=== PATIENT | female | born 1990 | race Hispanic/Latino ===

== ENCOUNTER → 2017-09-14 07:43 | Outpatient (CLI) | payer MEDICAID, SELFPAY ==
--- NOTE | 2017-09-14 07:47 | DI.US.S_ITS ---
PROCEDURE: US OB >= 14 WEEKS FETUS INDICATIONS: ANATOMY OUTSIDE/PRIOR DATING DATA: Last menstrual period (LMP): Unknown. LMP-based estimated date of delivery (JAKY): N./A.. First dating scan (date and location): 09/14/2017. Estimated date of delivery (JAKY) from first dating scan: 11/26/2017. TECHNIQUE: Real-time scanning was performed of the fetus, with image documentation and biometric measurements. Endovaginal scanning: Not required COMPARISON: None. FINDINGS: General: A single living intrauterine gestation is present. Presentation: Transverse, head to the maternal left. Placenta: Placental position is anterior, without previa. Amniotic fluid index: 17.2 cm, normal range is 5-24 cm. heart rate: 125 beats per minute. Maternal cervical canal: 3.9 cm long. Normal lower limit is 2.5 cm. biometrics: Biparietal diameter: 29 weeks 2 days Head circumference: 29 weeks 2 days Abdominal circumference: 31 weeks 5 days Femur length: 27 weeks 6 days Estimated gestational age from initial scan: not applicable. Composite gestational age from present scan: 29 weeks 4 days Estimated weight and percentile: 1517 g Measurement variability for biometric dating: +/- 7 days from 14 weeks to 15 weeks 6 days gestation, +/- 10 days from 16 weeks to 21 weeks 6 days gestation, +/- 2 weeks from 22 weeks to 27 weeks 6 days gestation, +/- 3 weeks for 28 weeks gestation or later. weight reference: 4500 g or EFW >90/95% is considered macrosomia or large for gestational age. EFW <10% is small for gestational age. EFW 5% or less is considered intra-uterine growth restriction. Anatomic survey: Neuro: Cranial anatomy not well seen secondary to age Nuchal skin fold: Normal at less than 6 mm between 14-21 weeks gestational age. Face: Nose and lips, facial profile are now well seen secondary to position. Spine: No evidence for spina bifida. Heart: 4-chambered heart is present, with ventricular outflow tracts not well seen. Diaphragm: Diaphragm is intact. Stomach: Left-sided stomach is present. Kidneys: No hydronephrosis. Normal is less than 5 mm in 2nd trimester, less than 7 mm in 3rd trimester. Cord: 3-vessel cord has orthotopic insertion. Bladder: Normal in size. Extremities: All 4 extremities identified. IMPRESSION: Single, live intrauterine gestation in transverse lie showing composite gestational age of 29 weeks 4 days, JAKY 11/26/2017. Visualized anatomy appears normal however there are some areas not well-seen secondary to age or/and position Dictated by: Charbel Bullock M.D. on 09/14/2017 at 8:51 Approved by: Charbel Bullock M.D. on 09/14/2017 at 8:56
== END ==
DX: Z34.93 Encounter for supervision of normal pregnancy, unspecified, third trimester (principal); Z3A.29 29 weeks gestation of pregnancy
CPT/HCPCS: 76811

== ENCOUNTER → 2017-09-25 15:05 | Outpatient (CLI) | payer MEDICAID, SELFPAY ==
[2017-09-25 16:11] LABS: Appearance Urine UA CLEAR; Bilirubin Urine UA NEGATIVE (NEGATIVE); Color Urine UA YELLOW; Glucose Urine UA NEGATIVE (Normal); Ketones Urine UA NEGATIVE (NEGATIVE); Leukocyte Esterase Urine UA NEGATIVE (NEGATIVE); Nitrite Urine UA Negative (Negative); Occult Blood Urine UA NEGATIVE (Negative); Protein Urine UA NEGATIVE (Negative); Specific Gravity Urine UA 1.015 (1.000-1.035); Urobilinogen Urine UA 0.2 E.U./dL (0.2)
[2017-09-25 16:18] LABS: Add Manual Diff / Slide Review NO; Basophils Percent Auto 0.1 % (0-2); Eosinophils Percent Auto 1.2 % (2-4); Hematocrit 34.1 % (36-46); Hemoglobin 11.6 g/dL (12.0-16.0); Lymphocytes Percent Auto 24.3 % (25-40); Mean Corpuscular HGB Conc 34.2 % (30-36); Mean Corpuscular Hemoglobin 30.1 PG (26-34); Mean Corpuscular Volume 88.1 fL (80-100); Monocytes Percent Auto 6.1 % (3-14); Neutrophils Absolute Auto 6800 /uL (3000-5900); Neutrophils Percent Auto 68.3 % (50-75); Platelet Count 259 X10^3/uL (150-400); Red Blood Cell Count 3.87 X10^6/uL (4.0-5.2); Red Cell Distribution Width 12.6 % (11.6-14.8)
[2017-09-25 16:40] LABS: Hemoglobin A1C% w Est Avg Glu 5.3 % (4.0-6.0)
[2017-09-25 16:47] LABS: Glucose 80 mg/dL (70-100)
[2017-09-25 17:32] LABS: Hepatitis B Surface Antigen NEGATIVE s/c (NEGATIVE)
[2017-09-25 17:47] LABS: HIV 1 and 2 Antibody NEGATIVE (NEGATIVE); Hep C Virus Ab w/Reflex Quant NEGATIVE s/c (NEGATIVE)
[2017-09-27 15:43] LABS: HSV 2 IGG AB < 0.90 index (< 0.90); HSV1IGG 5.51 index (< 0.90)
[2017-09-27 16:33] LABS: Varicella IgG Antibody < 135.00 Index (< 135.00)
[2017-10-01 14:43] LABS: Rapid Plasma Reagin NON-REACTIVE
== END ==
DX: Z34.83 Encounter for supervision of other normal pregnancy, third trimester (principal); Z3A.30 30 weeks gestation of pregnancy
CPT/HCPCS: 36415; 80055; 81003; 82947; 83036; 86695; 86696; 86703; 86787; 86803; 86850; 86900; 86901; 87086

== ENCOUNTER 2017-09-25 16:00 | Outpatient (CLI) | payer MEDICAID, SELFPAY | END 2017-09-25 16:40 | disposition home or self-care (01) | LOC: LABOR 17:08 → OB 09-27 14:39 | DX: O09.33 Supervision of pregnancy with insufficient antenatal care, third trimester (principal); Z3A.31 31 weeks gestation of pregnancy | CPT/HCPCS: 36415; 59025; 80055; 81003; 82947; 83036; 86695; 86696; 86703; 86787; 86803; 86850; 86900; 86901; 87086; G0378; G0379 ==

== ENCOUNTER 2017-10-05 08:50 | Observation (INO) | payer MEDICAID, SELFPAY ==
--- NOTE | 2017-10-05 09:42 | P.TNLD_ITS ---
Visit Information Visit Information Date of evaluation: 10/05/17 Primary OB Provider: Laureano Bai On-call OB Provider: Nora Anaya Reason for Evaluation: Yes non-stress test non-stress test reason: other (h/o demise) [facility] Social History Smoking Status: Never smoker Evaluation Evaluation Baseline heart rate: 130 Variability: Moderate (11-25) monitor accelerations: Present monitor decelerations: Absent Diagnosis, Plan/Disposition Final Diagnosis (1) NST (non-stress test) reactive: Current Visit: No Status: Acute (2) 32 weeks gestation of : Current Visit: No Status: Acute Plan/Disposition Plan: Reactive NST for h/o demise
== END 2017-10-05 09:36 | disposition home or self-care (01) ==
DX: O09.293 Supervision of pregnancy with other poor reproductive or obstetric history, third trimester (principal); Z3A.32 32 weeks gestation of pregnancy
CPT/HCPCS: 59025; G0378; G0379

== ENCOUNTER → 2017-10-12 07:58 | Outpatient (CLI) | payer MEDICAID, SELFPAY ==
--- NOTE | 2017-10-12 07:59 | DI.US.S_ITS ---
PROCEDURE: US OB LIMITED INDICATIONS: history loss OUTSIDE/PRIOR DATING DATA: Last menstrual period (LMP): Unknown. LMP-based estimated date of delivery (JAKY): N./A.. First dating scan (date and location): 09/14/2017. Estimated date of delivery (JAKY) from first dating scan: 11/26/2017.. TECHNIQUE: Real-time scanning was performed of the fetus, with image documentation and biometric measurements. Endovaginal scanning: No COMPARISON: None. FINDINGS: General: A single living intrauterine gestation is present. Presentation: Vertex. Placenta: Placental position is anterior, without previa. Amniotic fluid index: 18.6 cm, normal range is 5-24 cm. heart rate: 144 beats per minute. Maternal cervical canal: Not well-seen biometrics: Biparietal diameter: 34 weeks 1 day Head circumference: 35 weeks 5 days Abdominal circumference: 34 weeks 6 days Femur length: 35 weeks 2 days Estimated gestational age from initial scan: 33 weeks 4 days Composite gestational age from present scan: 35 weeks Estimated weight and percentile: 83rd percentile Measurement variability for biometric dating: +/- 7 days from 14 weeks to 15 weeks 6 days gestation, +/- 10 days from 16 weeks to 21 weeks 6 days gestation, +/- 2 weeks from 22 weeks to 27 weeks 6 days gestation, +/- 3 weeks for 28 weeks gestation or later. weight reference: 4500 g or EFW >90/95% is considered macrosomia or large for gestational age. EFW <10% is small for gestational age. EFW 5% or less is considered intra-uterine growth restriction. Other: Not applicable. IMPRESSION: Single living IUP redemonstrated and interval growth is normal. Dictated by: Dov Francois [facility] Interpreted: Oniel Doran MD on 10/12/2017 at 9:15 Approved by: Oniel Doran M.D. on 10/12/2017 at 10:06
== END ==
DX: Z34.83 Encounter for supervision of other normal pregnancy, third trimester (principal); Z3A.35 35 weeks gestation of pregnancy; Z87.59 Personal history of other complications of pregnancy, childbirth and the puerperium
CPT/HCPCS: 76815

== ENCOUNTER 2017-10-12 09:52 | Observation (INO) | payer MEDICAID, SELFPAY | END 2017-10-12 11:09 | disposition home or self-care (01) | DX: Z34.83 Encounter for supervision of other normal pregnancy, third trimester (principal); Z3A.33 33 weeks gestation of pregnancy | CPT/HCPCS: 59025; 76815; G0378; G0379 ==

== ENCOUNTER 2017-10-19 09:13 | Outpatient (CLI) | payer MEDICAID, SELFPAY | END 2017-10-19 10:00 | disposition home or self-care (01) | LOC: OB 13:22 | DX: Z34.03 Encounter for supervision of normal first pregnancy, third trimester (principal); Z3A.34 34 weeks gestation of pregnancy | CPT/HCPCS: 59025; G0378; G0379 ==

== ENCOUNTER → 2017-10-26 08:14 | Outpatient (CLI) | payer MEDICAID, SELFPAY ==
[2017-10-27 12:53] LABS: Strep Grp B PCR NEG for Grp B Strep
== END ==
DX: Z34.83 Encounter for supervision of other normal pregnancy, third trimester (principal)
CPT/HCPCS: 87653

== ENCOUNTER → 2017-10-26 08:57 | Outpatient (CLI) | payer MEDICAID, SELFPAY | END | disposition home or self-care (01) | LOC: LABOR 10:58 → OB 10-30 07:35 | DX: Z34.03 Encounter for supervision of normal first pregnancy, third trimester (principal); Z3A.35 35 weeks gestation of pregnancy | CPT/HCPCS: 59025; 87653; G0378; G0379 ==

== ENCOUNTER 2017-11-02 09:29 | Outpatient (CLI) | payer MEDICAID, SELFPAY ==
--- NOTE | 2017-11-02 10:32 | PM.OBTRLD ---
Visit Information Visit Information Date of evaluation: 11/02/17 Primary OB Provider: Laureano Bai Reason for Evaluation: Yes non-stress test Comments/Additional reasons for admission: Prior demise Evaluation Evaluation Baseline heart rate: 135 Variability: Moderate (11-25) monitor accelerations: Present monitor decelerations: Absent Diagnosis, Plan/Disposition Final Diagnosis (1) NST (non-stress test) reactive: Current Visit: No Status: Acute (2) 36 weeks gestation of : Current Visit: Yes Status: Acute Plan/Disposition Plan: Patient was discharged home to follow up at her routine OB appointment, precautions reviewed with the patient with her interpreting
== END 2017-11-02 10:35 | disposition home or self-care (01) ==
LOC: LABOR 10:26 → OB 14:27
DX: O09.293 Supervision of pregnancy with other poor reproductive or obstetric history, third trimester (principal); Z3A.36 36 weeks gestation of pregnancy
CPT/HCPCS: 59025; G0378; G0379

== ENCOUNTER 2017-11-09 08:44 | Outpatient (CLI) | payer MEDICAID, SELFPAY | END 2017-11-09 09:54 | disposition home or self-care (01) | LOC: OB 08:50 → LABOR 09:50 | DX: Z3A.37 37 weeks gestation of pregnancy (principal); Z34.83 Encounter for supervision of other normal pregnancy, third trimester | CPT/HCPCS: 59025; G0378 ==

== ENCOUNTER 2017-11-16 08:33 | Outpatient (CLI) | payer MEDICAID, SELFPAY | END 2017-11-16 09:25 | disposition home or self-care (01) | LOC: LABOR 09:21 → OB 12:42 | DX: O09.33 Supervision of pregnancy with insufficient antenatal care, third trimester (principal); Z3A.38 38 weeks gestation of pregnancy | CPT/HCPCS: 59025; G0378; G0379 ==

== ENCOUNTER 2017-11-23 08:32 | Observation (INO) | payer MEDICAID, SELFPAY ==
[2017-11-23] MEDS: miSOPROStol 25 MCG TABLET VAG (10:38)
== END 2017-11-23 11:56 | disposition home or self-care (01) ==
PROVIDERS: Admitting Provider Specialist; Visit Provider Specialist
DX: Z34.83 Encounter for supervision of other normal pregnancy, third trimester (principal); Z3A.39 39 weeks gestation of pregnancy
CPT/HCPCS: 59025; 59050; G0378; G0379

== ENCOUNTER 2017-11-23 14:44 | Observation (INO) | payer MEDICAID, SELFPAY | END 2017-11-23 17:30 | disposition home or self-care (01) | PROVIDERS: Admitting Provider Specialist; Visit Provider Specialist | DX: Z34.83 Encounter for supervision of other normal pregnancy, third trimester (principal); Z3A.39 39 weeks gestation of pregnancy | CPT/HCPCS: 59025; 59050; G0378; G0379 ==

== ENCOUNTER → 2017-11-26 12:19 | Outpatient (CLI) | payer MEDICAID, SELFPAY ==
--- NOTE | 2017-11-26 14:50 | PM.OBTRLD ---
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
--- NOTE | 2017-11-26 14:53 | P.TNLD_ITS ---
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
== END | disposition home or self-care (01) ==
PROVIDERS: Visit Provider Specialist
DX: Z3A.40 40 weeks gestation of pregnancy (principal); O48.0 Post-term pregnancy; Z87.59 Personal history of other complications of pregnancy, childbirth and the puerperium
CPT/HCPCS: 59025; G0378; G0379

== ENCOUNTER 2017-11-30 07:26 | Inpatient (IN) | payer MEDICAID, SELFPAY ==
[2017-11-30] MEDS: LACTATED RINGERS 1,000 ML 100 ML IV ×2 (07:30→19:08)
[2017-11-30] MEDS: OXYTOCIN PREMIX 30 UNIT/500 ML PLAST..BAG IV (08:20)
[2017-11-30 08:51] LABS: Add Manual Diff / Slide Review NO; Basophils Percent Auto 0.2 % (0-2); Eosinophils Percent Auto 1.1 % (2-4); Hematocrit 35.5 % (36-46); Hemoglobin 12.1 g/dL (12.0-16.0); Lymphocytes Percent Auto 33.8 % (25-40); Mean Corpuscular HGB Conc 34.1 % (30-36); Mean Corpuscular Hemoglobin 29.8 PG (26-34); Mean Corpuscular Volume 87.4 fL (80-100); Monocytes Percent Auto 5.7 % (3-14); Neutrophils Absolute Auto 5900 /uL (3000-5900); Neutrophils Percent Auto 59.2 % (50-75); Platelet Count 222 X10^3/uL (150-400); Red Blood Cell Count 4.07 X10^6/uL (4.0-5.2); Red Cell Distribution Width 14.3 % (11.6-14.8)
[2017-11-30 11:56] VITALS: BP 124/66
--- NOTE | 2017-11-30 14:08 | P.HPOB_ITS ---
OB HPI Date/Time Date of admission: 11/30/17 Date Patient Seen: 11/30/17 Time Patient Seen: 08:02 History of Present Condition Chief complaint: OBS : 3 Para: 1 Estimated Date of Delivery: 11/26/17 Estimated Gestational Age (weeks): 40 Narrative: Ludy Riley is a 27 year old female with late care starting at 31 weeks with prior 7 month demise with no living children is admitted for induction at 40 weeks living some distance from the hospital. Indications Indication for induction OB: maternal distance Other reason(s) for admission: Prior 7 month demise History of Present care: initiated at week # (31), number of visits (10) and pounds weight gain (13) Dating criteria: based on 3rd trimester US only Ultrasounds: normal mid trimester US Obstetrical complications: none Medical complications: none Preadmission Labs Blood type: O (+) positive -: Antibody screen: negative, GBS status: negative, HBsAG: negative, HIV: negative, HSV 1: positive, HSV 2: negative and RPR/VDLR: negative -: Rubella: immune and Varicella: not immune HCAB: negative 1 hr GTT: 80 Prior (ies) History: Seven month stillborn Miscarriage in 1st trimester Evaluation Evaluation Baseline heart rate: 120 Variability: Moderate (11-25) monitor accelerations: Present monitor decelerations: Absent Contraction Frequency (minutes): 5 Uterine Contraction Intensity: Mild Category of Tracing: I Cervical dilation (cm): 2 Cervical effacement (%): 80 station: -1 Laboratory results: Laboratory Tests 11/30/17 11/30/17 07:45 07:45 WBC 10.0 RBC 4.07 Hgb 12.1 Hct 35.5 L MCV 87.4 MCH 29.8 MCHC 34.1 RDW 14.3 Plt Count 222 Neut % (Auto) 59.2 Lymph % (Auto) 33.8 [place] % (Auto) 5.7 Eos % (Auto) 1.1 L Baso % (Auto) 0.2 Neut # (Auto) 5900 Blood Type O Positive Antibody Screen Negative [facility] Medical History Colitis (Inactive) Social History Smoking Status: Never smoker Meds Home Medications Medication Instructions Recorded Confirmed Type 1 tab PO DAILY 09/25/17 09/25/17 History vitamin,calcium,kjdlvjex-eqjp-utxqt acid tablet Allergies Allergy/AdvReac Type Severity Reaction Status Date / Time No Known Drug Allergies Allergy Unverified 09/25/17 16:43 Review of Systems Review of Systems Patient has noted good movement. No leakage of fluid. No signs or symptoms of preeclampsia. No fevers. No pain. All systems reviewed & are unremarkable except as noted in HPI and below Exam Vital Signs (past 8 hours): - Blood pressure 124/66, pulse of 90, temperature 36.1? 11/30/17 11:56 Blood Pressure 124/66 Narrative Exam Narrative: HEENT exam within normal limits. Lungs are clear to auscultation and percussion. Heart is regular rate and rhythm no S3-S4 or murmurs. Abdomen is soft, nontender. Infant is vertex. Extremities without edema and nontender with normal DTRs. 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 Anticipate vaginal delivery.
[2017-11-30] MEDS: fentaNYL 100 MCG/2 ML INJ IV (14:38)
--- NOTE | 2017-11-30 22:37 | PM.OBPRVD ---
Events: Labor Induction Delivery date: 11/30/17 Intrapartal events: Prolonged 2nd Stage > 2.5 hours Induction method: per pitocin protocol Delivery monitor: external FHT and external uterine Route of delivery: vacuum extraction Indication for instrumentation: maternal exhaustion Laceration description: Perineal - 2nd Degree Delivery repair: chromic (3-0) Estimated blood loss (mL): 150 Anesthesia type: Epidural Narrative: Patient came to Labor and delivery for induction for prior demise at 40 and half weeks living far distance from the hospital. She was started on Pitocin. heart tones category 1 to category 2 throughout labor. She received an epidural catheter for pain control. Patient pushed for greater than 3 hr and due to maternal exhaustion decision was made to vacuum assisted vaginal delivery. With the 2nd contraction the infant was delivered over an intact perineum. The male was placed on the maternal abdomen. After the cord stopped pulsating the cord was clamped, cut, and cord bloods obtained. The placenta delivered spontaneously, intact, with 3 vessels. There was no cervical or vaginal tears. A second-degree midline perineal tear was repaired with 3 0 chromic suture in the usual 2 layer fashion. Both and mother doing well. [place] Baby 1: Infant gender: Male Presentation: vertex position: Right Occiput Anterior Placenta delivery description: Spontaneous cord vessel description: 3 Vessels score (1 min): 8 score (5 min): 9 Plan for aftercare: Routine post vaginal delivery
[2017-12-01 06:02] LABS: Add Manual Diff / Slide Review NO; Basophils Percent Auto 0.3 % (0-2); Eosinophils Percent Auto 0.2 % (2-4); Hematocrit 36.1 % (36-46); Hemoglobin 12.1 g/dL (12.0-16.0); Lymphocytes Percent Auto 18.9 % (25-40); Mean Corpuscular HGB Conc 33.6 % (30-36); Mean Corpuscular Hemoglobin 29.5 PG (26-34); Mean Corpuscular Volume 87.7 fL (80-100); Monocytes Percent Auto 4.4 % (3-14); Neutrophils Absolute Auto 11700 /uL (3000-5900); Neutrophils Percent Auto 76.2 % (50-75); Platelet Count 214 X10^3/uL (150-400); Red Blood Cell Count 4.11 X10^6/uL (4.0-5.2); Red Cell Distribution Width 14.1 % (11.6-14.8); White Blood Cell Count 15.4 X10^3/uL (4.5-11.0)
--- NOTE | 2017-12-01 18:39 | PM.OBPN.1 ---
Subjective - OB Interval history: day #1 Patient comments: pain well controlled baby status: doing well [place] feeding status: exclusively breast feeding Narrative: Patient denies any problems with headaches, scotomata, epigastric pain. She is ambulatory. Her bleeding is mild. She has minimal pain. She is urinating well. Date Patient Seen: 12/01/17 Time Patient Seen: 18:40 Exam Vital Signs (past 8 hours): Blood pressure 105/64, pulse 79, temperature 97.4? Narrative Exam Narrative: Abdomen is soft, nontender. Uterus is firm, at U, nontender. Mild lochia. Extremities without edema and nontender. Objective Labs Result Diagrams: 12/01/17 05:52 Labs: Laboratory Results - last 24 hr 12/01/17 05:52 WBC 15.4 H D RBC 4.11 Hgb 12.1 Hct 36.1 MCV 87.7 MCH 29.5 MCHC 33.6 RDW 14.1 Plt Count 214 Neut % (Auto) 76.2 H Lymph % (Auto) 18.9 L [place] % (Auto) 4.4 Eos % (Auto) 0.2 L Baso % (Auto) 0.3 Neut # (Auto) 31744 H Assessment & Plan (1) Post term over 40 weeks: Status: Acute Current Visit: No (2) History of unexplained stillbirth: Status: Chronic Current Visit: No (3) Vaginal delivery: Status: Acute Assessment and plan: Patient is doing well on day #1 Current Visit: Yes Plan day: 1 plan OB: routine care Time Spent With Patient Total time spent is greater than 50% in coordination of care (as documented) at patient's floor/unit and/or counseling patient: less than 15 minutes
--- NOTE | 2017-12-01 18:43 | P.PNOB_ITS ---
Subjective - OB Interval history: day #1 Patient comments: pain well controlled baby status: doing well [place] feeding status: exclusively breast feeding Narrative: Patient denies any problems with headaches, scotomata, epigastric pain. She is ambulatory. Her bleeding is mild. She has minimal pain. She is urinating well. Date Patient Seen: 12/01/17 Time Patient Seen: 18:40 Exam Vital Signs (past 8 hours): Blood pressure 105/64, pulse 79, temperature 97.4? Narrative Exam Narrative: Abdomen is soft, nontender. Uterus is firm, at U, nontender. Mild lochia. Extremities without edema and nontender. Objective Labs Result Diagrams: 12/01/17 05:52 Labs: Laboratory Results - last 24 hr 12/01/17 05:52 WBC 15.4 H D RBC 4.11 Hgb 12.1 Hct 36.1 MCV 87.7 MCH 29.5 MCHC 33.6 RDW 14.1 Plt Count 214 Neut % (Auto) 76.2 H Lymph % (Auto) 18.9 L [place] % (Auto) 4.4 Eos % (Auto) 0.2 L Baso % (Auto) 0.3 Neut # (Auto) 05972 H Assessment & Plan (1) Post term over 40 weeks: Status: Acute Current Visit: No (2) History of unexplained stillbirth: Status: Chronic Current Visit: No (3) Vaginal delivery: Status: Acute Assessment and plan: Patient is doing well on day #1 Current Visit: Yes Plan day: 1 plan OB: routine care Time Spent With Patient Total time spent is greater than 50% in coordination of care (as documented) at patient's floor/unit and/or counseling patient: less than 15 minutes
[2017-12-02] MEDS: IBUPROFEN 600 MG TABLET PO ×2 (01:47→08:49)
[2017-12-02] MEDS: DOCUSATE 250 MG CAPSULE PO (08:49)
--- NOTE | 2017-12-02 09:21 | PM.OBDS.1 ---
Discharge Providers Date of admission: 11/30/17 07:26 Primary care physician: Laureano Bai MD Consults: 11/30/17 08:37 Consult to Anesthesiology Urgent Comment: Consulting Provider: Anesthesiologist Reason for consultation: epidural Has provider been notified: No 11/30/17 23:48 Consult to Licensed Midwife Routine Comment: Discharge provider: Halina Rosales MD Discharge Date: 12/02/17 Summary Date Patient Seen: 12/02/17 Time Patient Seen: 09:21 Hospital Course: Patient arrived on Labor and delivery for post-dates induction and prior demise. She received IV Pitocin. She received an epidural catheter for pain control. She had maternal exhaustion so underwent a vacuum assisted vaginal delivery. She had a second-degree midline perineal tear that was repaired. Baby was a viable male infant weighing 7 lb 2 oz Both mother doing well. Patient denies any signs or symptoms of preeclampsia. She is urinating and ambulating well. Mild lochia. Blood pressure 133/58, pulse 92, temperature 97.4?. Abdomen is soft, nontender. Uterus is firm, at U, nontender. Repair is intact. Extremities without edema and nontender. Patient's blood type is O positive and she is rubella immune Peripartum Data Delivery Method: Assisted Delivery Procedures: Pitocin induction, epidural catheter, vacuum assisted vaginal delivery, repair of 2nd degree tear complications: none Discharge Diagnosis (1) Post term over 40 weeks: Status: Acute (2) History of unexplained stillbirth: Status: Chronic (3) Vaginal delivery: Status: Acute Status at Discharge Functional status at discharge: independent ambulation Overall status at discharge: patient is progressing back to baseline Time Spent with Patient Total time spent providing and/or coordinating discharge services: Objective Labs Result Diagrams: 12/01/17 05:52 Discharge Plan Discharge Plan Patient Disposition: Home Discharge Med Rec/Prescriptions Prescriptions: New ibuprofen 600 mg Tablet 600 mg PO Q6HR PRN (Reason: Pain, Mild (1-3)) Qty: 30 RF: 0 Continue prenat.vits,elmer,wrb-rwim-xwtje [ Vitamin] tablet 1 tab PO DAILY RF: 0 Follow up/Referrals: Halina Rosales MD [Physician] - 12/28/17 12:00 am (Patient needs time. exam) Laureano Bai MD [Primary Care Provider] - Provider Discharge Instructions Diet: Regular Activity: Nothing in vagina for 4 weeks Skin/Wound/Dressing Care Report to your healthcare provider any signs of infection, such as:: chills, fever, increased pain and unusual drainage Discharge Data Primary Care Provider: Laureano Bai Attending Provider: Halina Rosales Admit Date/Time: 11/30/17 07:26
[2017-12-02 10:15] VITALS: BP 124/66; PULSE 79; TEMP 36.3
== END 2017-12-02 13:10 | disposition home or self-care (01) | DRG 807 ==
PROVIDERS: Admitting Provider Specialist; Visit Provider Specialist
DX: O48.0 Post-term pregnancy (principal); Z37.0 Single live birth; O75.81 Maternal exhaustion complicating labor and delivery; Z3A.40 40 weeks gestation of pregnancy; O70.1 Second degree perineal laceration during delivery
CPT/HCPCS: 01967; 36415; 59050; 59409; 85025; 86850; 86900; 86901; G0379; J2590; J3010

== ENCOUNTER → 2019-04-16 11:00 | Outpatient (CLI) | payer MEDICAID, SELFPAY ==
[2019-04-16 11:25] LABS: Appearance Urine UA CLEAR; Bilirubin Urine UA NEGATIVE (NEGATIVE); Color Urine UA YELLOW; Glucose Urine UA NEGATIVE (Negative); Ketones Urine UA NEGATIVE (NEGATIVE); Leukocyte Esterase Urine UA NEGATIVE (NEGATIVE); Nitrite Urine UA NEGATIVE (Negative); Occult Blood Urine UA NEGATIVE (Negative); Protein Urine UA NEGATIVE (Negative); Urobilinogen Urine UA 0.2 E.U./dL (0.2)
[2019-04-16 11:26] LABS: Add Manual Diff / Slide Review NO; Basophils Absolute Auto 0 /uL (0-100); Basophils Percent Auto 0.2 % (0-2); Eosinophils Absolute Auto 100 /uL (0-450); Eosinophils Percent Auto 0.8 % (2-4); Hematocrit 35.2 % (36-46); Hemoglobin 12.1 g/dL (12.0-16.0); Lymphocytes Absolute Auto 2300 /uL (1100-4500); Lymphocytes Percent Auto 28.4 % (25-40); Mean Corpuscular HGB Conc 34.3 % (30-36); Mean Corpuscular Hemoglobin 30.1 PG (26-34); Mean Corpuscular Volume 87.7 fL (80-100); Monocytes Absolute Auto 300 /uL (0-900); Monocytes Percent Auto 4.2 % (3-14); Neutrophils Absolute Auto 5500 /uL (1500-7000); Neutrophils Percent Auto 66.4 % (50-75); Platelet Count 224 X10^3/uL (150-400); Red Blood Cell Count 4.01 X10^6/uL (4.0-5.2); White Blood Cell Count 8.2 X10^3/uL (4.5-11.0)
[2019-04-16 11:34] LABS: pH Urine UA 7.5 (4.5-8.0)
[2019-04-16 12:28] LABS: Hepatitis B Surface Antigen NEGATIVE s/c (NEGATIVE)
[2019-04-16 13:01] LABS: HIV 1 & 2 Ab/Ag 4th Gen Combo NEGATIVE (NEGATIVE); Hep C Virus Ab w/Reflex Quant NEGATIVE s/c (NEGATIVE)
[2019-04-16 15:06] LABS: Urine N gonorrhoeae NOT DETECTED
[2019-04-16 15:09] LABS: Urine Chlamydia NOT DETECTED
[2019-04-17 14:44] LABS: RPR Screen Non Reactive (Non Reactive)
[2019-04-17 14:49] LABS: Varicella IgG Antibody 181 index (Immune >165)
== END ==
PROVIDERS: Referring Provider Specialist; Visit Provider Specialist
DX: Z34.81 Encounter for supervision of other normal pregnancy, first trimester (principal)
CPT/HCPCS: 36415; 80055; 81003; 86787; 86803; 86850; 86900; 86901; 87086; 87389; 87491; 87591

== ENCOUNTER → 2019-05-28 11:16 | Outpatient (CLI) | payer MEDICAID, SELFPAY ==
[2019-05-30 20:39] LABS: AFP, Serum 28.9 ng/mL (.); Calc Gestational Age Ultrasound (.); Estriol, Free 1.15 ng/mL (.); Inhibin A, Dimeric 171.35 pg/mL (.); Inhibin A, MoM 1.17 (.); Maternal Ethnicity Other (.); Maternal Weight 186 lbs (.); Number of Fetuses No (.); OSBR Risk 1 IN 10000 (.); Results Report (.); Test Results *Screen Negative* (.); hCG, MoM 0.44 (.); hCG, Serum 11075 mIU/mL (.)
== END ==
PROVIDERS: Referring Provider Specialist; Visit Provider Specialist
DX: Z34.82 Encounter for supervision of other normal pregnancy, second trimester (principal); Z3A.18 18 weeks gestation of pregnancy
CPT/HCPCS: 36415; 82105; 82677; 84702; 86336

== ENCOUNTER → 2019-06-18 11:36 | Outpatient (CLI) | payer MEDICAID, SELFPAY ==
--- NOTE | 2019-06-18 11:39 | DI.US.S_ITS ---
PROCEDURE: US OB >= 14 WEEKS FETUS INDICATIONS: 20 WEEK ANATOMY OUTSIDE/PRIOR DATING DATA: Last menstrual period (LMP): Not available. LMP-based estimated date of delivery (JAKY): None available. First dating scan (date and location): 03/19/19, by Dr. Rosales. Estimated date of delivery (JAKY) from first dating scan: The 10/22/19, by Dr. Rosales.. TECHNIQUE: Real-time scanning was performed of the fetus, with image documentation and biometric measurements. Endovaginal scanning: Not needed COMPARISON: [facility], , OB >= 14 WEEKS FETUS, 05/28/2019, 11:04. [facility], , OB >= 14 WEEKS FETUS, 11/26/2017, 11:30. FINDINGS: General: A single living intrauterine gestation is present. Presentation: Vertex. Placenta: Placental position is anterior fundal, without previa. Amniotic fluid index: 15.0 cm, normal range is 5-24 cm. heart rate: 150 beats per minute. Maternal cervical canal: 3.4 cm long. Normal lower limit is 2.5 cm. biometrics: Biparietal diameter: 5.7 cm, 23 weeks 3 days Head circumference: 20.4 cm, 17 weeks 4 days Abdominal circumference: 17.4 cm, 22 weeks 2 days Femur length: 3.9 cm, 22 weeks 2 days Estimated gestational age from initial scan: 22 weeks 0 days Composite gestational age from present scan: 22 weeks 5 days Estimated weight and percentile: 498 g, 63rd percentile Measurement variability for biometric dating: +/- 7 days from 14 weeks to 15 weeks 6 days gestation, +/- 10 days from 16 weeks to 21 weeks 6 days gestation, +/- 2 weeks from 22 weeks to 27 weeks 6 days gestation, +/- 3 weeks for 28 weeks gestation or later. weight reference: 4500 g or EFW >90/95% is considered macrosomia or large for gestational age. EFW <10% is small for gestational age. EFW 5% or less is considered intra-uterine growth restriction. Anatomic survey: Neuro: Ventricles are non-dilated at less than 10 mm. Cisterna magna is normal at 3-11 mm. Cerebellum is normal in size and morphology. Nuchal skin fold: Normal at less than 6 mm between 14-21 weeks gestational age. Face: Nose and lips, facial profile are normal. Spine: No evidence for spina bifida. Heart: 4-chambered heart is present, with normal ventricular outflow tracts. Diaphragm: Diaphragm is intact. Stomach: Left-sided stomach is present. Kidneys: No hydronephrosis. Normal is less than 5 mm in 2nd trimester, less than 7 mm in 3rd trimester. Cord: 3-vessel cord has orthotopic insertion. Bladder: Normal in size. Extremities: All 4 extremities identified. IMPRESSION: Appropriate interval growth, no anomaly seen. The delivery date is scheduled to be centered on 10/22/19. Dictated by: Aleks Rodgers M.D. on 06/18/2019 at 13:23 Approved by: Aleks Rodgers M.D. on 06/18/2019 at 13:27
== END ==
PROVIDERS: Referring Provider Specialist; Visit Provider Specialist
DX: Z34.82 Encounter for supervision of other normal pregnancy, second trimester (principal); Z3A.22 22 weeks gestation of pregnancy
CPT/HCPCS: 76811

== ENCOUNTER → 2019-07-09 10:23 | Outpatient (CLI) | payer MEDICAID, SELFPAY ==
[2019-07-09 12:49] LABS: GTT (PREG) 1 Hour PP 50gm Dose 120 mg/dL (76-139)
[2019-07-09 12:58] LABS: Hematocrit 32.8 % (36-46); Hemoglobin 11.4 g/dL (12.0-16.0)
== END ==
PROVIDERS: Referring Provider Specialist; Visit Provider Specialist
DX: Z34.82 Encounter for supervision of other normal pregnancy, second trimester (principal)
CPT/HCPCS: 36415; 82950; 85014; 85018

== ENCOUNTER 2019-07-30 11:03 | Outpatient (CLI) | payer MEDICAID, SELFPAY ==
--- NOTE | 2019-07-30 11:46 | PM.OBTRLD ---
Visit Information Visit Information Date of evaluation: 07/30/19 Primary OB Provider: Halina Rosales Reason for Evaluation: Yes non-stress test non-stress test reason: other (Prior 28 week demise) [facility] Medical History (Updated 07/30/19 @ 11:47 by aHlina Rosales MD) 28 weeks gestation of (Acute) Colitis (Inactive) Hepatitis A (Acute) History of unexplained stillbirth (Acute) Vaginal delivery (Inactive) Family History (Updated 04/15/19 @ 21:03 by Sada Genao) Father Diabetes mellitus Mother Hypertension Grandmother Gastric cancer Grandfather No problems noted. Grandfather Cancer Grandmother No problems noted. Family/Other Cancer Gastric cancer Brother Hyperlipidemia Social History marital status: unmarried,living together number of children: 1 household members: significant other and children pets and animals: No education level: high school occupational status: unemployed special swapna needs: No Smoking Status: Never smoker second hand exposure: No alcohol intake: former (non-, very rare) substance use type: does not use Evaluation Evaluation Baseline heart rate: 140 Variability: Moderate (11-25) monitor accelerations: Present monitor decelerations: Absent Contraction Frequency (minutes): 0 Diagnosis, Plan/Disposition Final Diagnosis (1) History of unexplained stillbirth: Status: Acute (2) 28 weeks gestation of : Status: Acute Plan/Disposition Plan: Reassuring nonstress test patient is going to be seen more frequently with nonstress tests for reassurance with prior demise OB Disposition: home
== END 2019-07-30 12:00 | disposition home or self-care (01) ==
LOC: LABOR 11:18 → OB 07-31 13:03
PROVIDERS: Referring Provider Specialist; Visit Provider Specialist
DX: O26.892 Other specified pregnancy related conditions, second trimester (principal); Z87.59 Personal history of other complications of pregnancy, childbirth and the puerperium; Z3A.27 27 weeks gestation of pregnancy
CPT/HCPCS: 59025; G0378; G0379

== ENCOUNTER 2019-09-10 12:23 | Outpatient (CLI) | payer MEDICAID, SELFPAY ==
--- NOTE | 2019-09-10 13:03 | P.TNLD_ITS ---
Visit Information Visit Information Date of evaluation: 09/10/19 Primary OB Provider: Halina Rosales Reason for Evaluation: Yes non-stress test non-stress test reason: other (Prior 28 week demise) [facility] Medical History (Updated 09/10/19 @ 13:05 by Halina Rosales MD) Colitis (Inactive) Hepatitis A (Acute) History of unexplained stillbirth (Acute) Vaginal delivery (Inactive) Family History (Updated 04/15/19 @ 21:03 by Sada Genao) Father Diabetes mellitus Mother Hypertension Grandmother Gastric cancer Grandfather No problems noted. Grandfather Cancer Grandmother No problems noted. Family/Other Cancer Gastric cancer Brother Hyperlipidemia Social History marital status: unmarried,living together number of children: 1 household members: significant other and children pets and animals: No education level: high school occupational status: unemployed special swapna needs: No Smoking Status: Never smoker second hand exposure: No alcohol intake: former (non-, very rare) substance use type: does not use Evaluation Evaluation Baseline heart rate: 150 Variability: Moderate (11-25) monitor accelerations: Present monitor decelerations: Absent Category of Tracing: Reactive Comments: Mild uterine irritability that patient is not feeling Diagnosis, Plan/Disposition Final Diagnosis (1) History of unexplained stillbirth: Status: Acute (2) 33 weeks gestation of : Status: Acute Plan/Disposition Plan: Patient was discharged home with precautions reviewed. OB Disposition: home
== END 2019-09-10 12:55 | disposition home or self-care (01) ==
LOC: OB 09-11 11:11
PROVIDERS: Referring Provider Specialist; Visit Provider Specialist
DX: O09.293 Supervision of pregnancy with other poor reproductive or obstetric history, third trimester (principal); Z3A.33 33 weeks gestation of pregnancy
CPT/HCPCS: 59025; G0378; G0379

== ENCOUNTER 2019-09-25 08:58 | Outpatient (CLI) | payer MEDICAID, SELFPAY ==
--- NOTE | 2019-09-25 09:32 | P.TNLD_ITS ---
Visit Information Visit Information Date of evaluation: 09/25/19 Primary OB Provider: Halina Rosales Reason for Evaluation: Yes non-stress test non-stress test reason: other (Prior unexplained 28 week demise) [facility] Medical History (Updated 09/25/19 @ 09:33 by Halina Rosales MD) Colitis (Inactive) Hepatitis A (Acute) History of unexplained stillbirth (Acute) Vaginal delivery (Inactive) Family History (Updated 04/15/19 @ 21:03 by Sada Genao) Father Diabetes mellitus Mother Hypertension Grandmother Gastric cancer Grandfather No problems noted. Grandfather Cancer Grandmother No problems noted. Family/Other Cancer Gastric cancer Brother Hyperlipidemia Social History marital status: unmarried,living together number of children: 1 household members: significant other and children pets and animals: No education level: high school occupational status: unemployed special swapna needs: No Smoking Status: Never smoker second hand exposure: No alcohol intake: former (non-, very rare) substance use type: does not use Evaluation Evaluation Baseline heart rate: 130 Variability: Moderate (11-25) monitor accelerations: Present monitor decelerations: Absent Contraction Frequency (minutes): 10 Uterine Contraction Intensity: Mild Category of Tracing: Reactive Diagnosis, Plan/Disposition Final Diagnosis (1) History of unexplained stillbirth: Status: Acute (2) 35 weeks gestation of : Status: Acute Plan/Disposition Plan: Discharge home follow up at routine OB appointment OB Disposition: home
== END 2019-09-25 09:35 | disposition home or self-care (01) ==
LOC: OB 09-29 16:31
PROVIDERS: Referring Provider Specialist; Visit Provider Specialist
DX: O09.293 Supervision of pregnancy with other poor reproductive or obstetric history, third trimester (principal); Z3A.35 35 weeks gestation of pregnancy
CPT/HCPCS: 59025; 87653; G0378; G0379

== ENCOUNTER → 2019-09-25 16:36 | Outpatient (CLI) | payer MEDICAID, SELFPAY ==
[2019-10-02 17:12] LABS: Strep Grp B PCR NEG for Grp B Strep
== END ==
PROVIDERS: Visit Provider Specialist
DX: Z34.83 Encounter for supervision of other normal pregnancy, third trimester (principal); Z3A.36 36 weeks gestation of pregnancy

== ENCOUNTER 2019-10-06 12:45 | Outpatient (CLI) | payer MEDICAID, SELFPAY ==
[2019-10-06 13:22] LABS: Appearance Urine UA CLEAR; Bilirubin Urine UA NEGATIVE (NEGATIVE); Color Urine UA YELLOW; Glucose Urine UA NEGATIVE (Negative); Ketones Urine UA NEGATIVE (NEGATIVE); Leukocyte Esterase Urine UA NEGATIVE (NEGATIVE); Nitrite Urine UA NEGATIVE (Negative); Occult Blood Urine UA TRACE-LYSED (Negative); Protein Urine UA NEGATIVE (Negative); Specific Gravity Urine UA 1.015 (1.000-1.035); Urobilinogen Urine UA 0.2 E.U./dL (0.2)
--- NOTE | 2019-10-06 13:45 | PM.OBTRLD ---
Visit Information Visit Information Date of evaluation: 10/06/19 Primary OB Provider: Halina Rosales Reason for Evaluation: Yes rule out labor Vital Signs Vital Signs: Blood pressure 116/83, pulse 76, patient is afebrile [facility] Medical History (Updated 10/06/19 @ 13:46 by Halina Rosales MD) Colitis (Inactive) Hepatitis A (Acute) History of unexplained stillbirth (Acute) Vaginal delivery (Inactive) Family History (Updated 04/15/19 @ 21:03 by Sada Genao) Father Diabetes mellitus Mother Hypertension Grandmother Gastric cancer Grandfather No problems noted. Grandfather Cancer Grandmother No problems noted. Family/Other Cancer Gastric cancer Brother Hyperlipidemia Social History marital status: unmarried,living together number of children: 1 household members: significant other and children pets and animals: No education level: high school occupational status: unemployed special swapna needs: No Smoking Status: Never smoker second hand exposure: No alcohol intake: former (non-, very rare) substance use type: does not use Objective Labs Labs: Laboratory Results - last 24 hr 10/06/19 12:45 Urine Color Yellow Urine Appearance Clear Urine pH 7.0 Ur Specific [place] 1.015 Urine Protein Negative Urine Glucose (UA) Negative Urine Ketones Negative Urine Occult Blood Trace-lysed Urine Nitrate Negative Urine Bilirubin Negative Urine Urobilinogen 0.2 Ur Leukocyte Esterase Negative Evaluation Evaluation Baseline heart rate: 130 Variability: Moderate (11-25) monitor accelerations: Present monitor decelerations: Absent Contraction Frequency (minutes): 8 Category of Tracing: Reactive Cervical dilation (cm): 1 Cervical effacement (%): 0 station: -3 Laboratory results: Laboratory Tests 10/06/19 12:45 Urine Color Yellow Urine Appearance Clear Urine pH 7.0 Ur Specific [place] 1.015 Urine Protein Negative Urine Glucose (UA) Negative Urine Ketones Negative Urine Occult Blood Trace-lysed Urine Nitrate Negative Urine Bilirubin Negative Urine Urobilinogen 0.2 Ur Leukocyte Esterase Negative Diagnosis, Plan/Disposition Final Diagnosis (1) False labor: Status: Acute Plan/Disposition Plan: Precautions reviewed with the patient. Keep routine OB appointment OB Disposition: home
== END 2019-10-06 13:36 | disposition home or self-care (01) ==
LOC: LABOR 13:16 → OB 10-07 09:30
PROVIDERS: PCP Specialist; Referring Provider Specialist; Visit Provider Specialist
DX: O47.03 False labor before 37 completed weeks of gestation, third trimester (principal); Z3A.36 36 weeks gestation of pregnancy; O36.8130 Decreased fetal movements, third trimester, not applicable or unspecified
CPT/HCPCS: 59025; 81003; G0378; G0379

== ENCOUNTER 2019-10-14 09:02 | Outpatient (CLI) | payer MEDICAID, SELFPAY ==
--- NOTE | 2019-10-14 09:35 | PM.OBTRLD ---
Visit Information Visit Information Date of evaluation: 10/14/19 Primary OB Provider: Halina Rosales On-call OB Provider: Maria M Bolaños Reason for Evaluation: Yes non-stress test Comments/Additional reasons for admission: Patient sent for nonstress test due to history of stillbirth. Vital Signs Vital Signs: 110/65, HR 85 PFSH Medical History Colitis (Inactive) Hepatitis A (Acute) History of unexplained stillbirth (Acute) Vaginal delivery (Inactive) Family History Father Diabetes mellitus Mother Hypertension Grandmother Gastric cancer Grandfather No problems noted. Grandfather Cancer Grandmother No problems noted. Family/Other Cancer Gastric cancer Brother Hyperlipidemia Social History marital status: unmarried,living together number of children: 1 household members: significant other and children pets and animals: No education level: high school occupational status: unemployed special swapna needs: No Smoking Status: Never smoker second hand exposure: No alcohol intake: former (non-, very rare) substance use type: does not use Review of Systems Constitutional Constitutional: Reports system reviewed and no additional complaints, except as documented Evaluation Evaluation Baseline heart rate: 135 Variability: Moderate (11-25) monitor accelerations: Present monitor decelerations: Absent Diagnosis, Plan/Disposition Plan/Disposition Plan: Home with routine precautions. OB Disposition: home
== END 2019-10-14 09:40 | disposition home or self-care (01) ==
LOC: LABOR 09:09 → OB 10-15 11:49
PROVIDERS: PCP Specialist; Referring Provider Specialist; Visit Provider Specialist
DX: O26.893 Other specified pregnancy related conditions, third trimester (principal); Z3A.37 37 weeks gestation of pregnancy; Z87.59 Personal history of other complications of pregnancy, childbirth and the puerperium
CPT/HCPCS: 59025; G0378; G0379

== ENCOUNTER 2019-10-22 08:22 | Inpatient (IN) | payer MEDICAID, SELFPAY ==
[2019-10-22 10:18] LABS: Add Manual Diff / Slide Review NO; Basophils Absolute Auto 0 /uL (0-100); Basophils Percent Auto 0.3 % (0-2); Eosinophils Absolute Auto 100 /uL (0-450); Eosinophils Percent Auto 0.8 % (2-4); Hematocrit 35.9 % (36-46); Hemoglobin 12.2 g/dL (12.0-16.0); Lymphocytes Absolute Auto 2700 /uL (1100-4500); Lymphocytes Percent Auto 33.7 % (25-40); Mean Corpuscular HGB Conc 34.1 % (30-36); Mean Corpuscular Hemoglobin 30.2 PG (26-34); Mean Corpuscular Volume 88.5 fL (80-100); Monocytes Absolute Auto 500 /uL (0-900); Monocytes Percent Auto 6.5 % (3-14); Neutrophils Absolute Auto 4800 /uL (1500-7000); Neutrophils Percent Auto 58.7 % (50-75); Platelet Count 186 X10^3/uL (150-400); Red Blood Cell Count 4.06 X10^6/uL (4.0-5.2); Red Cell Distribution Width 14.2 % (11.6-14.8); White Blood Cell Count 8.1 X10^3/uL (4.5-11.0)
[2019-10-22] MEDS: LACTATED RINGERS 1,000 ML 100 ML IV (10:43)
[2019-10-22] MEDS: OXYTOCIN PREMIX 30 UNIT/500 ML PLAST..BAG IV (10:45)
--- NOTE | 2019-10-22 13:30 | P.HPOB_ITS ---
OB HPI Date/Time Date of admission: 10/22/19 Date Patient Seen: 10/22/19 Time Patient Seen: 10:00 History of Present Condition Chief complaint: NST : 4 Para: 2 Estimated Date of Delivery: 10/29/19 Estimated Gestational Age (weeks): 39 Narrative: Ludy Riley is a 29 year old female Indications Indication for induction OB: maternal distance and other (Prior 7 month demise) History of Present care: good care, initiated at week # (8), number of visits (12) and pounds weight gain (21) Dating criteria: LMP confirmed by 1st trimester US Ultrasounds: normal mid trimester US Obstetrical complications: none Medical complications: none Preadmission Labs Blood type: O (+) positive -: Antibody screen: negative, GBS status: negative, HBsAG: negative, HIV: negative and RPR/VDLR: negative -: Chlamydia screen: not detected and Gonorrhea screen: not detected -: Rubella: immune and Varicella: immune HCAB: negative Quad screen: Normal 1 hr GTT: 120 Prior (ies) History: 03/03/14 28 week demise of uncertain etiology 11/30/17 41 week delivery 7 lb 2 oz male vacuum assisted vaginal delivery Evaluation Evaluation Baseline heart rate: 130 Variability: Moderate (11-25) monitor accelerations: Present monitor decelerations: Absent Contraction Frequency (minutes): 5 Uterine Contraction Intensity: Mild Category of Tracing: Reactive Cervical dilation (cm): 2 Cervical effacement (%): 60 station: -3 Laboratory results: Laboratory Tests 10/22/19 10/22/19 10:05 10:05 WBC 8.1 RBC 4.06 Hgb 12.2 Hct 35.9 L MCV 88.5 MCH 30.2 MCHC 34.1 RDW 14.2 Plt Count 186 Neut % (Auto) 58.7 Lymph % (Auto) 33.7 [place] % (Auto) 6.5 Eos % (Auto) 0.8 L Baso % (Auto) 0.3 Neut # (Auto) 4800 Lymph # (Auto) 2700 [place] # (Auto) 500 Eos # (Auto) 100 Baso # (Auto) 0 Blood Type O Positive Antibody Screen Negative [facility] Medical History Colitis (Inactive) Hepatitis A (Acute) History of unexplained stillbirth (Acute) Vaginal delivery (Inactive) Family History Father Diabetes mellitus Mother Hypertension Grandmother Gastric cancer Grandfather No problems noted. Grandfather Cancer Grandmother No problems noted. Family/Other Cancer Gastric cancer Brother Hyperlipidemia Social History marital status: unmarried,living together number of children: 1 household members: significant other and children pets and animals: No education level: high school occupational status: unemployed special swapna needs: No Smoking Status: Never smoker second hand exposure: No alcohol intake: former (non-, very rare) substance use type: does not use Meds Home Medications and Allergies Home Medications Medication Instructions Recorded Confirmed Type prenat.vits,elmer,npr-[id number] 1 tab PO DAILY 09/25/17 10/01/19 History Allergies Allergy/AdvReac Type Severity Reaction Status Date / Time No Known Drug Allergies Allergy Verified 09/10/19 11:53 Review of Systems Review of Systems Narrative: No headaches, scotomata, epigastric pain. No leakage of fluid. Good movement. ROS: Yes All systems reviewed with the patient and are negative except as otherwise documented Exam Vital Signs (past 8 hours): Blood pressure 119/72, pulse 73, temperature 36.2? Narrative Exam Narrative: HEENT exam within normal limits. Lungs are clear to auscultation percussion. Heart is regular rate and rhythm no S3-S4 or murmurs. Abdomen is gravid. is vertex. Extremities without edema and nontender. Objective Labs Result Diagrams: 10/22/19 10:05 Labs: Laboratory Results - last 24 hr 10/22/19 10/22/19 10:05 10:05 WBC 8.1 RBC 4.06 Hgb 12.2 Hct 35.9 L MCV 88.5 MCH 30.2 MCHC 34.1 RDW 14.2 Plt Count 186 Neut % (Auto) 58.7 Lymph % (Auto) 33.7 [place] % (Auto) 6.5 Eos % (Auto) 0.8 L Baso % (Auto) 0.3 Neut # (Auto) 4800 Lymph # (Auto) 2700 [place] # (Auto) 500 Eos # (Auto) 100 Baso # (Auto) 0 Blood Type O Positive Antibody Screen Negative Assessment and Plan Assessment and Plan Assessment and Plan narrative: Patient with prior 28 week demise and living distance from the hospital was admitted for induction. Pitocin will be started. Anticipate vaginal delivery
[2019-10-22 14:53] LABS: COVID19 -Nasal RAPID Negative (Negative)
--- NOTE | 2019-10-22 19:13 | PM.OBPRVD ---
Labor & Delivery Delivery date: 10/22/19 Induction method: per pitocin protocol Delivery monitor: external FHT and external uterine Route of delivery: L&D Laceration Description: Superficial (At vaginal opening) Delivery repair: chromic (3 0) Estimated blood loss (mL): 150 Anesthesia type: Epidural Baby 1: gender: Female Presentation: vertex position: Transverse Placenta delivery description: Spontaneous cord vessel description: 3 Vessels score (1 min): 8 score (5 min): 9 Plan for aftercare: Routine care
[2019-10-23 06:42] LABS: Add Manual Diff / Slide Review NO; Basophils Absolute Auto 0 /uL (0-100); Basophils Percent Auto 0.1 % (0-2); Eosinophils Absolute Auto 100 /uL (0-450); Eosinophils Percent Auto 0.8 % (2-4); Hematocrit 34.6 % (36-46); Lymphocytes Absolute Auto 3400 /uL (1100-4500); Lymphocytes Percent Auto 31.7 % (25-40); Mean Corpuscular HGB Conc 34.8 % (30-36); Mean Corpuscular Hemoglobin 30.7 PG (26-34); Mean Corpuscular Volume 88.4 fL (80-100); Monocytes Absolute Auto 600 /uL (0-900); Monocytes Percent Auto 5.9 % (3-14); Neutrophils Absolute Auto 6600 /uL (1500-7000); Neutrophils Percent Auto 61.5 % (50-75); Platelet Count 158 X10^3/uL (150-400); Red Blood Cell Count 3.92 X10^6/uL (4.0-5.2); Red Cell Distribution Width 14.3 % (11.6-14.8); White Blood Cell Count 10.7 X10^3/uL (4.5-11.0)
[2019-10-23] MEDS: FERROUS GLUCONATE 324 MG TABLET PO (09:04)
[2019-10-23] MEDS: DOCUSATE 100 MG CAPSULE PO (09:04)
--- NOTE | 2019-10-23 11:25 | PM.OBDS.1 ---
Discharge Providers Provider Date of admission: 10/22/19 08:22 Discharge Date: 10/23/19 Primary care physician: Halina Rosales MD Consults: 10/22/19 10:38 Consult to Anesthesiology Urgent Comment: Consulting Provider: Anesthesiologist Reason for consultation: Epidural Has provider been notified: No 10/23/19 19:11 Consult to [employer] Routine Comment: Discharge provider: Halina Rosales MD Summary Hospital Course Date Patient Seen: 10/23/19 Time Patient Seen: 11:26 Procedures: Pitocin induction, epidural catheter, spontaneous vaginal delivery Hospital Course: Patient arrived on Labor and delivery for Pitocin induction. She received an epidural catheter for pain control and had a spontaneous vaginal delivery of a viable female . Patient is ambulatory, tolerating regular diet. Patient denies headaches, scotomata, epigastric pain. [place] is mild. Peripartum Data Delivery Method: Natural Vaginal Laceration Description: None Procedures: Pitocin induction, epidural catheter, spontaneous vaginal complications: none [place] 1: Gender: Female Disposition of : home Status at Discharge Cognitive/behavioral status at discharge: oriented Functional status at discharge: independent ambulation Time Spent with Patient Time attestation: Total time spent providing and/or coordinating discharge services: Time spent: Less than 30 minutes Objective Labs Result Diagrams: 10/23/19 06:20 Labs: Laboratory Results - last 24 hr 10/22/19 10/23/19 09:50 06:20 WBC 10.7 RBC 3.92 L Hgb 12.0 Hct 34.6 L MCV 88.4 MCH 30.7 MCHC 34.8 RDW 14.3 Plt Count 158 Neut % (Auto) 61.5 Lymph % (Auto) 31.7 [place] % (Auto) 5.9 Eos % (Auto) 0.8 L Baso % (Auto) 0.1 Neut # (Auto) 6600 Lymph # (Auto) 3400 [place] # (Auto) 600 Eos # (Auto) 100 Baso # (Auto) 0 COVID-19 PCR Negative Exam Vital Signs (past 8 hours): Blood pressure 114/77, pulse of 88, temperature 97.6? Narrative Exam Narrative: Abdomen is soft, nontender. Uterus is firm, at U, nontender. Mild lochia. Extremities without edema and nontender. Patient is O positive, she is rubella immune, she received Tdap in the 3rd trimester. Discharge Plan Discharge Plan Patient Disposition: Home Discharge orders & Medications Prescriptions: New ibuprofen 600 mg Tablet 600 mg PO Q6HR PRN (Reason: Pain, Mild (1-3)) Qty: 20 RF: 0 Continued prenat.vits,elmer,acb-zqrc-czhat [ Vitamin] tablet 1 tab PO DAILY RF: 0 Follow up/Referrals: Halina Rosales MD [Primary Care Provider] - 12/03/19 (Still need a time) Diet/Activity/Treatments Diet: Regular Activity: Nothing in vagina for 6 weeks Skin/Wound/Dressing Care Report to your healthcare provider any signs of infection, such as:: chills, fever and increased pain Discharge Data Primary Care Provider: Halina Rosales
[2019-10-23 14:32] VITALS: BP 114/77; PULSE 86; RESP 18; TEMP 36.4
== END 2019-10-23 17:20 | disposition home or self-care (01) | DRG 807 ==
PROVIDERS: Admitting Provider Specialist; PCP Specialist; Referring Provider Specialist; Visit Provider Specialist
DX: O70.0 First degree perineal laceration during delivery (principal); Z37.0 Single live birth; Z3A.39 39 weeks gestation of pregnancy; Z11.59 Encounter for screening for other viral diseases
CPT/HCPCS: 01967; 36415; 59050; 59410; 85025; 86850; 86900; 86901; 87635; G0379; J2590